=== PATIENT | female | born 1995 | race Caucasian/White ===

== ENCOUNTER 2025-03-25 13:03 | Outpatient (AMB) | payer OTHER, SELFPAY ==
--- NOTE | 2025-03-25 13:21 | MHC.PC.OV ---
Vital Signs 03/25/25 13:22 Height 5 ft 4.5 in Weight 141 lb 8 oz BMI 23.9 BP 110/82 Blood Pressure Location Lt brachial Position Sitting Pulse 79 Pulse Oximetry (%) 98 Oxygen Delivery Method Room Air Intake Visit Reasons: Establish Care Cryptographic Vulnerability Analyst Required: No Accompanied by: Self / Same As Patient Allergies house dust Allergy (Intermediate, Verified 03/25/25 13:39) sneezing Seasonal Allergies Allergy (Intermediate, Verified 03/25/25 13:39) Sneezing Medication List - Last Reconciled 03/25/25 by Rachell Mccoy PA-C bupropion HCl SR (Wellbutrin SR) 150 mg PO DAILY bupropion HCl XL (Wellbutrin XL) 150 mg PO QAM cholecalciferol (vitamin D3) 125 mcg PO DAILY escitalopram oxalate 5 mg PO DAILY magnesium 200 mg PO DAILY Tobacco use date assessed: 03/25/25 Dental Screening Dental Screen Date: 03/25/25 Did you have a dental visit in the last 12 months?: No Did you have a dental problem in the last 6 months where you did not have access to dental care?: No Was dental information given to patient?: Patient has dentist HPI Establish Care HPI Details 29-year-old male coming to the office with the 1st time. Presenting for a wellness visit and management of chronic conditions. Anxiety and depression are managed with Wellbutrin and escitalopram, with prescriptions handled by a psychiatrist. Asthma is controlled with an albuterol inhaler as needed, with no recent exacerbations requiring a steroid inhaler. Acid reflux, previously severe, is now well-managed with daily omeprazole 40 mg, purchased over the counter. The patient has a history of an eating disorder, currently stable with ongoing therapy and psychiatric support. Preventative care includes a referral to gynecology for routine screening due to a history of abnormal Pap smears. pap smear: 2023 vaccines: believes NED [facility] Surgical History H/O oral surgery Family History Other Arthritis Borderline high blood pressure Lung cancer Social History Household Members: Spouse Both parents involved: No Caregiver staying overnight: No Housing: House Are you a primary field care advocate to a significant other at home: No Do you presently have visiting nurse or other home services: No Alcohol intake: current Comment: once a month Patient Tobacco Use Status: Never used Tobacco e-Cigarette/Vaping Use: Never Used Substance Use Type: Marijuana service: No Current occupational status: employed Cognitive needs: No Hearing needs: No Vision needs: No Questionnaire PHQ-9 Over the last 2 weeks, how often have you been bothered by any of the following problems? 1. Little interest or pleasure in doing things: not at all 2. Feeling down, depressed, or hopeless: not at all 3. Trouble falling or staying asleep, or sleeping too much: several days 4. Feeling tired or having little energy: several days 5. Poor appetite or overeating: several days 6. Feeling bad about yourself - or that you are a failure or have let yourself or your family down: not at all 7. Trouble concentrating on things, such as reading the newspaper or watching television: not at all 8. Moving or speaking so slowly that other people could have noticed. Or the opposite - being so fidgety or restless that you have been moving around a lot more than usual: not at all 9. Thoughts that you would be better off or of hurting yourself in some way: not at all Total score: 3 Depression Screening Interpretation: Positive Depression Screening Follow-up: Existing condition and In treatment Depression Screening Done: Yes 34030 - PHQ-9 Billing: Yes Source: Developed by Drs. Jorge Qureshi, Lani Kumar, Dk Wright and colleagues, with an educational clemente from [employer]. Thrive Questionnaire Date Thrive assessed: 03/19/25 I am a: Patient What is your living situation today?: I have a steady place to live Within the past 12 months, did the food you bought not last and you didn't have the money to get more?: Never true Within the past 12 months, did you worry whether your food would run out before you got money to buy more?: Never true Do you have trouble paying for medicines?: No Do you have trouble getting transportation to medical appointments?: No Do you have trouble paying your heating and electricity bill?: No Do you have trouble taking care of your child, family member or friend?: No Do you have trouble with day-to-day activities such as bathing, preparing meals, shopping, managing finances, etc.?: No Are you currently unemployed and looking for a job?: No Are you interested in more education?: No Please select the resources that you would like help with: None Currently or been in a relationship where the following occur: No concerns reported THRIVE Score: 0 AUDIT C Alcohol Use Questionnaire (AUDIT-C) 1. How often do you have a drink containing alcohol?: Monthly or less 2. How many drinks containing alcohol do you have on a typical day when you are drinking?: 1 or 2 3. How often do you have six or more drinks on one occasion?: Never Total Score: 1 EUNICE-7 AMB Questionnaire EUNICE-7 Date EUNICE - 7 assessed: 03/25/25 Feeling nervous, anxious, or on edge: 1 = Several days Not being able to stop or control worryin = Several days Worrying too much about different things: 1 = Several days Trouble relaxin = Several days Being so restless that it is hard to sit still: 1 = Several days Becoming easily annoyed or irritable: 0 = Not at all Feeling afraid as if something awful might happen: 1 = Several days Total EUNICE-7 score (0-4 normal; 5-9 mild; 10-14 moderate; 15-21 severe): 6 Source: Developed by Drs. Jorge Qureshi, Lani Kumar, Dk Wright and colleagues, with an educational clemente from [employer]. EUNICE-7 Assessment Billing EUNICE-7 Assessment Tool: EUNICE-7 Assessment 55735 Review of Systems Const Denies body aches, Denies chills, Denies fever(s), Denies headache(s) and Denies poor appetite Eyes Reports no additional complaints ENT Denies dysphagia, Denies dizziness, Denies headache(s) and Denies odynophagia Card Denies chest pain, Denies syncope, Denies edema, Denies irregular heart rhythm, Denies lightheadedness and Reports dyspnea (w/ asthma only ) Resp Denies cough and Reports dyspnea (w/ asthma only ) GI Denies abdominal pain, Denies constipation, Denies dysphagia, Denies diarrhea, Denies nausea, Denies odynophagia and Denies vomiting Reports no additional complaints Musc Reports no additional complaints and Denies abnormal gait Skin/Breast Reports system reviewed and no additional complaints, except as documented Neuro Denies abnormal gait, Denies dizziness, Denies syncope and Denies headache(s) Psych Reports no additional complaints Physical exam (Primary Care) Vital Signs: Last Vital Signs Pulse 79 03/25/25 13:22 BP 110/82 03/25/25 13:22 Pulse Ox 98 03/25/25 13:22 Oxygen Delivery Method Room Air 03/25/25 13:22 BMI result Body Mass Index 23.9 Tobacco/Smoking Status: Tobacco use Status Tobacco use date assessed 03/25/25 03/25/25 13:34 Patient Tobacco Use Status Never used Tobacco 03/25/25 13:34 e-Cigarette/Vaping Use Never Used 03/25/25 13:34 PHQ-9: PHQ-9 Score PHQ-9: Total score 3 03/25/25 13:40 Depression Screening Interpretation: Positive Depression Screening Follow-up: Existing condition and In treatment Thrive Assessment: Date of Thrive Assessment Date Thrive assessed 03/19/25 03/25/25 13:21 Currently or been in a relationship where the following occur: No concerns reported Const General: cooperative, healthy appearing, comfortable and no acute distress Orientation/consciousness: patient oriented x3 HENMT Head: Yes normocephalic Ears: hearing grossly normal bilaterally General nose exam: Normal external nose present Face and sinus: Yes normal facial exam and Yes sinuses nontender Mouth: Normal oral and palatal mucosa present and tongue normal Throat: Yes posterior oropharynx normal Eyes General: appearance normal, both eyes and all related structures Conjunctivae: conjunctivae normal Pupils: Equal, round and reactive pupils present EOM: EOMs intact bilaterally and No Nystagmus present Neck Neck: Yes full ROM and Yes no lymphadenopathy Chest Chest palpation & inspection: normal inspection of the chest Resp Effort & Inspection: normal respiratory effort Auscultation: clear to auscultation bilaterally, no crackles, no rales, no rhonchi and no wheezes Cardio Rate: regular rate Rhythm: regular rhythm Peripheral pulses: radial pulses present and dorsalis pedis present GI Inspection: Yes normal to inspection and No Abdominal wall edema Palpation (GI): Soft to palpation, not firm and nontender Auscultation: normal bowel sounds Rectal Exam - Male: Yes deferred General: Yes no CVA tenderness Back/Spine/Pelvis Back: no CVA tenderness Skin General skin exam: no rashes or lesions noted Neuro General: patient oriented x3 Cranial nerves: Yes Equal, round and reactive pupils present, Yes Midline tongue present, Yes Ability to bilaterally elevate shoulders present and No Nystagmus present Gait exam (Neuro): Normal gait present Extrem General: Yes normal to inspection, Yes full ROM and No edema Psych Speech and movement: Normal speech and movement present Affect: normal affect Attitude: cooperative Insight: Good insight present (Psych) Judgement: Good judgement present (Psych) Coding Level of Care Code New Pt Prev Care 18-39yr(17951 Diagnoses Annual physical exam Z00.00 Asthma J45.909 Depression F32.A Anxiety F41.9 Eating disorder F50.9 GERD (gastroesophageal reflux disease) K21.9 Additional Codes EUNICE-7 Assessment Billing - EUNICE-7 Assessment Tool: EUNICE-7 Assessment 02340 ([id number]) PHQ-9 - 58288 - PHQ-9 Billing: Yes ([id number]) Assessment & Plan Assessment & Plan (1) Annual physical exam: Code(s): Z00.00 - Encounter for general adult medical examination without abnormal findings Category: Medical Plan: Patient is up-to-date on all recommended routine screenings and vaccinations for her age. Blood work is not up-to-date and I did place orders today. Healthy diet and regular exercise is encouraged. Plan to follow up yearly or sooner as needed (2) Asthma: Code(s): J45.909 - Unspecified asthma, uncomplicated Category: Medical Plan: Asthma currently controlled on present medications. Continue on albuterol as needed.? Avoid triggers such as allergies. (3) Depression: Comment: [facility] (Dayanara Rosario) psych every couple of months and counseling with [facility] (Divina) Code(s): F32.A - Depression, unspecified Category: Medical Plan: Depression is also managed with Wellbutrin and escitalopram, with stable symptoms reported. Continued psychiatric follow-up is recommended. (4) Anxiety: Code(s): F41.9 - Anxiety disorder, unspecified Category: Medical Plan: Anxiety is managed with Wellbutrin and escitalopram, prescribed by the psychiatrist. No changes in medication are needed at this time. (5) Eating disorder: Code(s): F50.9 - Eating disorder, unspecified Category: Medical Plan: The history of an eating disorder is stable with ongoing therapy and psychiatric support. Continued monitoring and therapy are advised. (6) GERD (gastroesophageal reflux disease): Code(s): K21.9 - Gastro-esophageal reflux disease without esophagitis Category: Medical Plan: Avoid trigger foods such as citrus, tomato products, soda, caffeine, spicy foods and other foods that may be irritating to your stomach. Avoid laying flat 3-4 hours after eating and elevate the head of the bed 30 degrees to prevent acid from moving into the esophagus. Continue on Omeprazole. Plan During the visit, we discussed the management of anxiety and depression with current medications, which are stable under psychiatric care. Asthma management was reviewed, with the patient advised to monitor inhaler use. We addressed acid reflux management and decided to prescribe omeprazole to reduce costs. A referral to gynecology was recommended for routine screening, and routine blood work was planned. The patient was advised to maintain current therapy for the history of an eating disorder. This note was constructed using voice recognition software. While every effort has been made to ensure accuracy and entry level manager, still areas may have been included sometimes these areas may affect the content or meeting of the given symptoms. Total time spent caring for the patient today was 30 minutes. This includes time spent before the visit reviewing the chart, time spent during the visit, and time spent after the visit and documentation. Patient was informed and verbally consented to the use of an ambient scribe for clinic note documentation during this visit. Orders: Orders Comprehensive Met. Panel Today F50.9 - Eating disorder, unspecified, Z00.00 - Encounter for general adult medical examination without abnormal findings Lipid Panel Today Z13.220 - Encounter for screening for lipoid disorders Complete Blood Count Auto Diff Today J45.909 - Unspecified asthma, uncomplicated, Z00.00 - Encounter for general adult medical examination without abnormal findings TSH reflex Free T4 Today F32.A - Depression, unspecified, Z13.29 - Encounter for screening for other suspected endocrine disorder Vitamin B12 and Folate Today F32.A - Depression, unspecified, Z13.21 - Encounter for screening for nutritional disorder Vitamin D 25-OH Total Today F32.A - Depression, unspecified, Z13.21 - Encounter for screening for nutritional disorder Referrals SHEARER SCREEN MEASURER AND TRIMMER Referral Z12.4 - Encounter for screening for malignant neoplasm of cervix Medications: New albuterol sulfate 90 mcg/actuation (Ventolin HFA) 1 inh inhalation QID 8.5 grams 0RF omeprazole 40 mg PO DAILY 90 caps 0RF cholecalciferol (vitamin D3) 125 mcg PO DAILY 90 caps 0RF
[2025-03-25 13:22] VITALS: BP 110/82; PULSE 79; O2SAT 98; BMI 23.9
--- OUTSIDE RECORDS SUMMARY | 2025-03-25 14:36 | XMS_ITS | Encounter Summary ---
Author Organization [facility] Address [address] [place] [address] Phone Care Team Providers Care Respiratory Care Instructor Name Role Phone Myesha Burnette MD Unavailable [phone] Ann Iyer MD Primary Care Provider + Encounter Details Date Type Department Care Team (Late st Contact Info) Description 06/19/2017 Ancillary Orders Virtual Department [address] [place] [address] Kylee Bah PA-C [address] [place] [phone] [email or web address] Abdominal pain, right upper quadrant Social History Tobacco Use Types Packs/Day Years Used Date Smoking Tobacco: Never Assessed Comments Unknown Sex and Gender Information Value Date Recorded Sex Assigned at Not on file Legal Sex Female 8:52 PM EDT Gender Identity Not on file Sexual Orientation Not on file documented as of this encounter Plan of Treatment Not on file documented as of this encounter Results * US ABDOMEN LIMITED RIGHT UPPER QUADRANT (06/19/2017 9:57 AM EST) Anatomical Region Laterality Modality Abdomen Ultrasound 06/19/2017 1:03 PM EST Impressions 06/19/2017 1:06 PM EST No gallstones, other biliary pathology or explanation of right upper quadrant pain POS [id number] Narrative 06/19/2017 1:06 PM EST No gallstones, gallbladder wall thickening, pericholecystic fluid or hyperemia. No biliary dilatation. CBD 3 mm. Liver homogeneous echotexture. No focal masses or enlargement. Pancreas is fairly well-visualized and sonographically normal No right-sided hydronephrosis. Procedure Note Kirby Lockhart MD - 06/19/2017 No gallstones, gallbladder wall thickening, pericholecystic fluid orhyperemia. No biliary dilatation. CBD 3 mm. Liver homogeneous echotexture. No focal masses or enlargement. Pancreas is fairly well-visualized and sonographically normal No right-sided hydronephrosis. IMPRESSION: No gallstones, other biliary pathology or explanation of right upperquadrant pain POS [id number] [facility] ULRICH IMG US ABDOMEN Final Result documented in this encounter Visit Diagnoses Diagnosis Abdominal pain, right upper quadrant Abdominal pain, right upper quadrant documented in this encounter Care Teams Respiratory Care Instructor Relationship Specialty Start Date End Date Ann Iyer MD [address] [place] [address] PCP - General Family Medicine 06/18/17 Myesha Burnette MD [address] [place] [address], [address] [place] [address] [email or web address] Historical LMR Provider 05/08/17 07/29/21 documented as of this encounter Additional Source Comments The information contained in this document represents components of the legal health record. It is not the complete legal health record.[facility]
--- OUTSIDE RECORDS SUMMARY | 2025-03-25 14:36 | XMS_ITS | Encounter Summary ---
Author Organization [facility] Address [address] [place] [address] Phone Care Team Providers Care Cdl Service Technician Name Role Phone Myesha Burnette MD Unavailable [phone] Ann Iyer MD Primary Care Provider + Encounter Details Date Type Department Care Team (Late st Contact Info) Description 06/18/2017 Ancillary Orders Virtual Department [address] [place] [address] Kylee Bah PA-C [address] [place] [id number] [email or web address] Abdominal pain, right upper quadrant Social History [...] on file documented as of this encounter Visit Diagnoses Diagnosis Abdominal pain, right upper quadrant documented in this encounter Care Teams Cdl Service Technician Relationship Specialty Start Date End Date Ann Iyer MD [address] [place] [phone] PCP - General Family Medicine 06/18/17 Myesha Burnette MD [address] [place] [address], [address] [place] [address] Historical LMR Provider 05/08/17 07/29/21 documented as of this encounter Additional Source Comments The information contained in this document represents components of the legal health record. It is not the complete legal health record.[facility]
--- OUTSIDE RECORDS SUMMARY | 2025-03-25 14:36 | XMS_ITS | Encounter Summary ---
Author Organization [facility] Address [address] [place] [address] Phone Care Team Providers Care Counselling Psychologist Name Role Phone Myesha Burnette MD Unavailable [phone] Ann Iyer MD Primary Care Provider + Encounter Details Date Type Department Care Team (Late st Contact Info) Description 03/04/2018 Ancillary Orders Virtual Department [address] [place] [address] Kylee Bah PA-C [address] [place] [phone] [email or web address] Pain in rib Social History Tobacco Use Types Packs/Day Years Used Date Smoking Tobacco: Never Assessed Comments Unknown Sex and Gender Information Value Date Recorded Sex Assigned at Not on file Legal Sex Female 8:52 PM EDT Gender Identity Not on file Sexual Orientation Not on file documented as of this encounter Plan of Treatment Not on file documented as of this encounter Visit Diagnoses Diagnosis Pain in rib Unspecified chest pain documented in this encounter Care Teams Counselling Psychologist Relationship Specialty Start Date End Date Ann Iyer MD [address] [place] [phone] PCP - General Family Medicine 06/18/17 Myesha Burnette MD [address] [place] [address], [address] [place] [address] Historical LMR Provider 05/08/17 07/29/21 documented as of this encounter Additional Source Comments The information contained in this document represents components of the legal health record. It is not the complete legal health record.[facility]
--- OUTSIDE RECORDS SUMMARY | 2025-03-25 14:36 | XMS_ITS | Clinical Summary ---
Author Organization [facility] Address [address] [place] [address] Phone Care Team Providers Care Demand Planning Analyst Name Role Phone Ann Iyer MD Primary Care Provider + Medications levonorgestrel and ethynyl estradiol (CAMRESE) 0.15-0.03 mg 3MPk 1 tablet by mouth every day Orally Once a day Active sertraline (ZOLOFT) 25 MG tablet 1 tablet Orally Once a day Active tretinoin (RETIN-A) 0.025 % cream 1 application to affected area in the evening to face Externally Once a day Active albuterol (PROVENTIL HFA) 90 mcg/actuation inhaler 2 puffs as needed Inhalation every 4 hrs 2 Active Social History Tobacco Use Types Packs/Day Years Used Date Smoking Tobacco: Never Assessed Education Answer Date Recorded Are you interested in more education? Not on ida e 07/10/2024 Are you concerned about learning? Not on file 07/10/2024 No 07/10/2024 No 07/10/2024 Digital Access Answer Date Recorded No 07/10/2024 No 07/10/2024 Reliable internet access at home? Not on file 07/10/2024 Device with a working camera? Not on file Comments Unknown Sex and Gender Information Value Date Recorded Sex Assigned at Not on file Legal Sex Female 8:52 PM EDT Gender Identity Not on file Sexual Orientation Not on file Last Filed Vital Signs Vital Sign Reading Time Taken Comments Blood Pressure 104/70 02/13/2016 8:34 AM EDT Pulse 84 02/13/2016 8:34 AM EDT Temperature 36.7 C (98 F) 02/13/2016 8:34 AM EDT Respiratory Rate - - Oxygen Saturation - - Inhaled Oxygen Concentration - - Weight 55.1 kg (121 lb 6.4 oz) 02/13/2016 8:34 A M EDT Height 160 cm (5' 3 ) 02/13/2016 8:34 AM EDT Body Mass Index 21.51 02/13/2016 8:34 AM EDT Plan of Treatment Not on file Medical Devices Not on file Insurance GENERIC COMMERCIAL GENERIC COMMERCIAL GENERIC COMMERCIAL MD GONZALES [id number] GENERIC COMMERCIAL MD G[place]ZALES [id number] GENERIC COMMERCIAL MD GONZALES [id number] GENERIC COMMERCIAL MD GONZALES [id number] Care Teams Demand Planning Analyst Relationship Specialty Start Date End Date Ann Iyer MD [address] [place] [address] [email or web address] PCP - General Family Medicine 06/18/17 Additional Source Comments The information contained in this document represents components of the legal health record. It is not the complete legal health record.[facility]
--- OUTSIDE RECORDS SUMMARY | 2025-03-25 14:36 | XMS_ITS | Clinical Summary ---
Author Organization [address] [place] [address] [place] [phone] Phone Care Team Providers Care Apiculturist Name Role Phone Physician, No Pcp Primary Care Provider Unavaila ble Allergies No known active allergies Medications No known medications Active Problems No known active problems Social History Tobacco Use Types Packs/Day Years Used Date Smoking Tobacco: Never Assessed Comments Unknown Sex and Gender Information Value Date Recorded Sex Assigned at Female 08/24/2024 11:25 AM EST Legal Sex Female 10:38 AM EST Gender Identity Female 08/24/2024 11:25 AM EST Sexual Orientation Straight 08/24/2024 11 :25 AM EST Obstetrics History Last Filed Vital Signs Vital Sign Reading Time Taken Comments Blood Pressure 117/80 08/21/2024 10:01 AM EST Pulse 78 08/21/2024 10:01 AM EST Temperature 36.9 C (98.4 F) 08/10/2024 1:35 PM EST Respiratory Rate - - Oxygen Saturation 98% 08/21/2024 10:01 AM EST Inhaled Oxygen Concentration - - Weight 71.7 kg (158 lb) 08/21/2024 10:01 AM EST Height 160 cm (5' 3 ) 08/21/2024 10:01 AM EST Body Mass Index 27.99 08/21/2024 10:01 AM EST Plan of Treatment Health Maintenance Due Date Last Done Comments DTaP,Tdap,and Td Vaccines (1 - Tdap) 2014 Hepatitis B Vaccines (1 of 3 - 19+ 3-dose series) 2014 Cervical Cancer Screening: Pap Smear 2016 Depression Screening 07/22/2024 HIV Screening 08/10/2024 Hepatitis C Screening 08/10/2024 Social Influencers of Health Screening 08/10/2024 COVID-19 Vaccine ( season) 2025 08/05/2021, 10/28/2020, 10/06/2020 Influenza Vaccine (#1) 2025 , 05/14/2023, 06/16/2022, Additional history exists Cholesterol Screening (Lipid Panel) 07/10/2029 07/10/2024 HIB Vaccines Aged Out No longer eligi ble based on patient's age to complete this topic HPV Vaccines Aged Out No longer eligi ble based on patient's age to complete this topic Hepatitis A Vaccines Aged Out No long er eligible based on patient's age to complete this topic IPV Vaccines Aged Out No longer eligi ble based on patient's age to complete this topic MMR Vaccines Aged Out No longer eligi ble based on patient's age to complete this topic Meningococcal ACWY Vaccine Aged Out N o longer eligible based on patient's age to complete this topic Meningococcal B Vaccine Aged Out No l onger eligible based on patient's age to complete this topic Pneumococcal Vaccine: Pediatrics (0 to 5 Years) and At-Risk Patients (6 to 49 Years) Aged Out No longer eligible based on patient's age to complete this topic RSV Immunization Patients Under 20 months Aged Out No longer eligible based on patient's age to complete this topic Varicella Vaccines Aged Out No longer eligible based on patient's age to complete this topic Insurance [employer] Care Teams Apiculturist Relationship Specialty Start Date End Date Physician, No Pcp PCP - General 08/10/24
== END 2025-03-25 14:12 | disposition home or self-care (01) ==
DX: Z00.00 Encounter for general adult medical examination without abnormal findings (principal); J45.909 Unspecified asthma, uncomplicated; F32.A Depression, unspecified; F41.9 Anxiety disorder, unspecified; F50.9 Eating disorder, unspecified; K21.9 Gastro-esophageal reflux disease without esophagitis

== ENCOUNTER → 2025-03-25 13:03 | Outpatient (BNVA) | payer OTHER, SELFPAY | DX: Z00.00 Encounter for general adult medical examination without abnormal findings (principal); J45.909 Unspecified asthma, uncomplicated; F41.9 Anxiety disorder, unspecified; F32.A Depression, unspecified; F50.9 Eating disorder, unspecified; K21.9 Gastro-esophageal reflux disease without esophagitis | CPT/HCPCS: 96127 ==

== ENCOUNTER 2025-07-06 10:57 | Outpatient (AMB) | payer OTHER, SELFPAY ==
--- NOTE | 2025-07-06 10:57 | A.OFFVIS_ITS ---
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 Clothing Supervisor: Clothing Supervisor Present (Nimisha) Accompanied by: Self / Same As Patient Allergies house dust Allergy (Intermediate, Verified 07/06/25 11:01) sneezing Seasonal Allergies Allergy (Intermediate, Verified 07/06/25 11:01) Sneezing Medication List - Last Reconciled 07/06/25 by Gladys Gutiérrez CNM albuterol sulfate 90 mcg/actuation (Ventolin HFA) 1 inh inhalation QID bupropion HCl SR (Wellbutrin SR) 150 mg PO DAILY bupropion HCl XL (Wellbutrin XL) 150 mg PO QAM cholecalciferol (vitamin D3) 125 mcg PO DAILY escitalopram oxalate 5 mg PO DAILY magnesium 200 mg PO DAILY norgestrel-ethinyl estradiol 0.3-30 mg-mcg (Low-Ogestrel (28)) 1 tab PO DAILY omeprazole 40 mg PO DAILY Is last menstrual period known: Yes Last menstrual period: 06/16/25 Post menopausal: No Patient : No HPI HPI 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 She has a history of some thing abnormal in the past that was noted after liquor grinder mill operator visit and in her PCC note it said abnormal Pap however in her memory she thinks it was an ovarian cyst and when she went on control pills it got much better. Her heavy menses also improved she has been on pills often on since she was 15 and it helps with her menses and that is also for control. She is not having any health concerns she goes to the gym and she walks her dogs. 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 She has fasting labs which she will be doing possibly today she is not interested in any extra testing for STIs. [facility] Medical History (Updated 07/06/25 @ 11:43 by Gladys Gutiérrez CNM) GERD (gastroesophageal reflux disease) Asthma Depression Anxiety Surgical History H/O oral surgery Family History Other Arthritis Borderline high blood pressure Lung cancer Social History Household Members: Spouse Both parents involved: No Caregiver staying overnight: No Housing: House Are you a primary career resource specialist to a significant other at home: No Do you presently have visiting nurse or other home services: No Alcohol intake: current Comment: once a month Patient Tobacco Use Status: Never used Tobacco e-Cigarette/Vaping Use: Never Used Substance Use Type: Marijuana service: No Current occupational status: employed Cognitive needs: No Hearing needs: No Vision needs: No Female Reproductive History Menstrual Age of Menarche: 11 Date of last menstrual period: 06/16/25 control method: pills Total pregnancies: 1 Ab induced: 1 History of abnormal pap smear: No Physical Exam Vital Signs: Last Vital Signs BP 112/72 07/06/25 11:01 BMI result Body Mass Index 23.7 Const General: healthy appearing, comfortable, no acute distress, well developed and alert Nutritional Appearance: average body habitus Orientation/consciousness: patient oriented x3 Limitations: no limitations HEENT Head: Yes normocephalic Neck Neck: Yes normal visual inspection Chest Chest palpation & inspection: normal inspection of the chest Breast/axilla inspection: normal inspection of the breasts and normal inspection of the axillae Breast/axilla palpation: normal palpation of the breasts and normal palpation of the axillae Resp Effort & Inspection: normal respiratory effort GI Inspection: Yes normal to inspection, No Abdominal wall edema and No distended Palpation (GI): Soft to palpation and nontender Other: External exam within normal limits vagina is pink and moist nulliparous cervix is pink smooth healthy appearing with normal scant mucus uterus is small midposition to anteverted mobile nontender adnexa nontender good tone with Kegel; General: Yes bladder normal to palpation External Female Exam: normal external appearance and normal appearance of the urethra Speculum Exam - Vagina: normal appearance of the vagina, normal palpation and normal vaginal discharge Speculum Exam - Cervix: normal appearance of the cervix, normal palpation and nontender Bimanual exam- vagina & uterus: normal bimanual exam, normal palpation, uterine size normal, bladder normal to palpation, consistency normal, normal palpation, uterine mobility normal, uterine shape normal, No Cervical tenderness present, non-tender and no cervical motion tenderness Bimanual Exam- Adnexa, other: normal adnexae, no masses, normal and No adnexal tenderness Neuro General: patient oriented x3 Assessment & Plan Assessment & Plan (1) Well woman exam with routine gynecological exam: Code(s): Z01.419 - Encounter for gynecological examination (general) (routine) without abnormal findings Category: Medical (2) Screening for malignant neoplasm of cervix: Code(s): Z12.4 - Encounter for screening for malignant neoplasm of cervix Category: Medical (3) Encounter for screening examination for sexually transmitted disease: Code(s): Z11.3 - Encounter for screening for infections with a predominantly sexual mode of transmission Category: Medical (4) Counseling for control, oral contraceptives: Code(s): Z30.09 - Encounter for other general counseling and advice on contraception Category: Medical (5) Breast cancer screening: Code(s): Z12.39 - Encounter for other screening for malignant neoplasm of breast Category: Medical Plan -----Discussed in this visit the following: healthy balanced diet, regular and consistent exercise, getting recommended health screens, doing the best she can for her particular health concerns, kegel exercises, pap smear screening and followup recommendations, mammography screening and SBE, normal changes in cycles in her life stage--- . Reviewed her contentment with the OCPs that she is on their managing things well and she would like to stay on them I am sending another refill for her for a year 3 months at a time reviewed she is taking the pills consistently and well she is a nonsmoker reviewed the danger signs to be alert for we will see her in 1 year She may go get her fasting lab work today as she is here and has not eaten yet. Medications: Refilled norgestrel-ethinyl estradiol 0.3-30 mg-mcg (Low-Ogestrel (28)) 1 tab PO DAILY 84 tabs 4RF Coding Level of Care Code Est Pt Prev Care 18-39y(53509) Diagnoses Well woman exam with routine gynecological exam Z01.419 Screening for malignant neoplasm of cervix Z12.4 Encounter for screening examination for sexually transmitted disease Z11.3 Counseling for control, oral contraceptives Z30.09 Breast cancer screening Z12.39
[2025-07-06 11:01] VITALS: BP 112/72; BMI 23.7
--- OUTSIDE RECORDS SUMMARY | 2025-07-06 14:22 | XMS_ITS | Clinical Summary ---
Author Organization [address] [place] [address] [place] [phone] Phone Care Team Providers Care Electrode Turner And Finisher Name Role Phone Physician, No Pcp Primary [...] Orientation Straight 08/24/2024 11 :25 AM EST Last Filed Vital Signs Vital Sign Reading [...] 2014 Cervical Cancer Screening: Pap Smear 2016 HPV Vaccines (1 - 3-dose SCDM series) 2022 Depression Screening 07/22/2024 HIV Screening 08/10/2024 Hepatitis C Screening 08/10/2024 Social Influencers of Health Screening 08/10/2024 COVID-19 Vaccine ( season) 2025 08/05/2021, 10/28/2020, 10/06/2020 Influenza Vaccine (#1) 2025 , 05/14/2023, 06/16/2022, Additional history exists Cholesterol Screening (Lipid Panel) 07/10/2029 07/10/2024 RSV Immunization Adult Patients (1 - 1-dose 75+ series) 2070 HIB Vaccines Aged Out No longer eligi [...] this topic Insurance [employer] Care Teams Electrode Turner And Finisher Relationship Specialty Start Date End Date Physician, No Pcp PCP - General 08/10/24
--- OUTSIDE RECORDS SUMMARY | 2025-07-06 14:22 | XMS_ITS | Encounter Summary ---
Author Organization [facility] Address [address] [place] [address] Phone Care Team Providers Care Heel Attacher Name Role Phone Myesha Burnette MD Unavailable [phone] Ann Iyer MD Primary Care Provider + Encounter Details Date Type Department Care Team (Late st Contact Info) Description 03/04/2018 Ancillary Orders Virtual Department [address] [place] [address] Kylee Bah PA-C [address] [place] [address] [facility] [place] [address] [email or web address] Pain in rib Social History [...] pain documented in this encounter Care Teams Heel Attacher Relationship Specialty Start Date End Date Ann Iyer MD [address] [place] [phone] [email or web address] PCP - General Family Medicine 06/18/17 Myesha Burnette MD [address] [place] [address], [address] [place] [address] [email or web address] Historical LMR Provider 05/08/17 07/29/21 documented as of this encounter Additional Source Comments The information contained in this document represents components of the legal health record. It is not the complete legal health record.[facility]
--- OUTSIDE RECORDS SUMMARY | 2025-07-06 14:22 | XMS_ITS | Clinical Summary ---
Author Organization [facility] Address [address] [place] [phone] Phone Care Team Providers Care Client Development Director Name Role Phone Ann Iyer MD Primary [...] COMMERCIAL GENERIC COMMERCIAL GENERIC COMMERCIAL MD GONZALES [id number] GENERIC COMMERCIAL MD GONZALES [id number] GENERIC COMMERCIAL MD GONZALES [id number] GENERIC COMMERCIAL MD GONZALES [id number] Care Teams Client Development Director Relationship Specialty Start Date End Date Ann Iyer MD [address] [place] [phone] [email or web address] PCP - General Family Medicine 06/18/17 Additional Source Comments The information contained in this document represents components of the legal health record. It is not the complete legal health record.[facility]
--- OUTSIDE RECORDS SUMMARY | 2025-07-06 14:22 | XMS_ITS | Encounter Summary ---
Author Organization [facility] Address [address] [place] [address] Phone Care Team Providers Care Circulation Supervisor Name Role Phone Myesha Burnette MD Unavailable [phone] Ann Iyer MD Primary Care Provider + Encounter Details Date Type Department Care Team (Late st Contact Info) Description 06/18/2017 Ancillary Orders Virtual Department [address] [place] [address] Kylee Bah PA-C [address] [place] [address] [facility] [place] [address] [email or web address] Abdominal pain, right upper quadrant Social History [...] quadrant documented in this encounter Care Teams Circulation Supervisor Relationship Specialty Start Date End Date Ann Iyer MD [address] [place] [phone] [email or web address] PCP - General Family Medicine 06/18/17 Myesha Burnette MD [address] [place] [address], [address] [place] [address] [email or web address] Historical LMR Provider 05/08/17 07/29/21 documented as of this encounter Additional Source Comments The information contained in this document represents components of the legal health record. It is not the complete legal health record.[facility]
--- OUTSIDE RECORDS SUMMARY | 2025-07-06 14:22 | XMS_ITS | Encounter Summary ---
Author Organization [facility] Address [address] [place] [phone] Phone Care Team Providers Care Furnace Keeper Name Role Phone Myesha Burnette MD Unavailable [phone] Ann Iyer MD Primary Care Provider + Encounter Details Date Type Department Care Team (Late st Contact Info) Description 06/19/2017 Ancillary Orders Virtual Department [address] [place] [address] Kylee Bah PA-C [address] [place] [address] [facility] [place] [address] [email or web address] Abdominal pain, right upper quadrant Social History [...] explanation of right upperquadrant pain POS [id number] us Hope Niurka ULRICH IMG US ABDOMEN Final Result documented in this encounter Visit Diagnoses Diagnosis Abdominal pain, right upper quadrant Abdominal pain, right upper quadrant documented in this encounter Care Teams Furnace Keeper Relationship Specialty Start Date End Date Ann Iyer MD [address] [place] [phone] PCP - General Family Medicine 06/18/17 Myesha Burnette MD [address] [place] [address], [address] [place] [address] [email or web address] Historical LMR Provider 05/08/17 07/29/21 documented as of this encounter Additional Source Comments The information contained in this document represents components of the legal health record. It is not the complete legal health record.[facility]
== END 2025-07-06 12:48 | disposition home or self-care (01) ==
LOC: HO.HWSM 10:57
PROVIDERS: Visit Provider Advanced Practice Midwife
DX: Z01.419 Encounter for gynecological examination (general) (routine) without abnormal findings (principal); Z12.4 Encounter for screening for malignant neoplasm of cervix; Z11.3 Encounter for screening for infections with a predominantly sexual mode of transmission; Z30.09 Encounter for other general counseling and advice on contraception; Z12.39 Encounter for other screening for malignant neoplasm of breast
CPT/HCPCS: 99395; 99459

== ENCOUNTER 2025-07-06 10:57 | Outpatient (REF) | payer OTHER, SELFPAY ==
[2025-07-06 22:39] LABS: Bacterial Vaginosis PCR NEGATIVE (Negative); Candida Group PCR NOT DETECTED (Not Detect); Candida glab krusei PCR NOT DETECTED (Not Detect); Trichomonas vaginalis PCR NOT DETECTED (Not Detect)
[2025-07-06 23:10] LABS: CT PCR NOT DETECTED (Not Detect.); NG PCR NOT DETECTED (Not Detect.)
== END 2025-07-06 10:58 | disposition home or self-care (01) ==
LOC: HO.LNP 10:57
PROVIDERS: Visit Provider Advanced Practice Midwife
DX: Z01.419 Encounter for gynecological examination (general) (routine) without abnormal findings (principal); Z20.2 Contact with and (suspected) exposure to infections with a predominantly sexual mode of transmission; Z30.09 Encounter for other general counseling and advice on contraception; Z12.39 Encounter for other screening for malignant neoplasm of breast
CPT/HCPCS: 81515; 87491; 87591; 87626; 88175